=== PATIENT | female | born 1980 ===

== ENCOUNTER 2017-09-13 12:36 | Emergency (ER) | payer MEDICAID, OTHER ==
--- NOTE | 2017-09-13 12:53 | ER Report ---
History and Physical Time Seen By MD: 12:38 Hx. of Stated Complaint: COUGH, SORE THROAT SINCE FRIDAY. HPI/ROS CHIEF COMPLAINT: Cough and sore throat HISTORY OF PRESENT ILLNESS: Patient is a 36-year-old female who presents the ED with complaint of cough and sore throat for the past 3 days. She states that her father has been ill and was diagnosed with pneumonia yesterday. She was concerned that she might be developing pneumonia and that she is 18 weeks . Patient denies any productive cough. She has not noted any fever or shortness of breath. She did start to have some hoarseness yesterday. She has not been taking any medications for her symptoms. REVIEW OF SYSTEMS: Constitutional: No fever, no chills. Eyes: No discharge. ENT: See history of present illness. Cardiovascular: No chest pain, no palpitations. Respiratory: See history of present illness. Musculoskeletal: No back pain. Skin: No rashes. Neurological: No headache. Allergies: Coded Allergies: No Known Drug Allergies (Unverified , 09/13/17) Reviewed Nurses Notes: Yes Old Medical Records Reviewed: Yes Constitutional Vital Sign - Last 24 Hours 09/13/17 12:41 Temp 97.9 Pulse 78 Resp 18 B/P (MAP) 136/84 Pulse Ox 98 Physical Exam General Appearance: The patient is alert, has no immediate need for airway protection and no signs of toxicity. Patient appears to be no acute distress. Eyes: Pupils equal and round no pallor or injection. ENT, Mouth: Mucous membranes are moist. Mild tonsillar erythema but no exudate appreciated. No anterior cervical lymphadenopathy appreciated. Respiratory: There are no retractions, lungs are clear to auscultation. Cardiovascular: Regular rate and rhythm. Skin: Warm and dry, no rashes. Musculoskeletal: Neck is supple non tender. Extremities are nontender, nonswollen and have full range of motion. DIFFERENTIAL DIAGNOSIS: After history and physical exam differential diagnosis was considered for cough and sore throat including pneumonia, influenza, upper respiratory infection, pulmonary embolism. Medical Decision Making Data Points Laboratory Hematology Test 09/13/17 12:42 Group A Streptococcus Screen Negative (NEGATIVE) Chemistry Test 09/13/17 12:42 Group A Streptococcus Screen Negative (NEGATIVE) ED Course/Re-evaluation ED Course Will obtain strep swab. 09/13/2017 1:11:17 pm - discussed the negative strep swab with the patient. Discussed with patient that given her hoarseness and lungs are clear likely this is a viral upper respiratory infection. She is limited with what she can take for this due to her . Advised that she may take some Tylenol for some pain relief if she wants. Decision to Disposition Date: Sep 13, 2017 Decision to Disposition Time: 13:11 Depart Departure Latest Vital Signs Vital Signs Date Time Temp Pulse Resp B/P (MAP) Pulse Ox O2 Delivery O2 Flow Rate FiO2 09/13/17 12:41 97.9 78 18 136/84 98 Impression: Primary Impression: Upper respiratory infection Condition: Improved Disposition: HOME OR SELF-CARE Patient Instructions: Upper Respiratory Infection (ED) Additional Instructions: Stay well-hydrated. Follow-up with primary care provider in 2-3 days. If having any worsening concerning symptoms may return to the emergency department. Problem Qualifiers Primary Impression: Upper respiratory infection URI type: unspecified URI Qualified Codes: J06.9 - Acute upper respiratory infection, unspecified FAHAD GALAVIZ PA-C Sep 13, 2017 12:53
[2017-09-13 13:24] VITALS: BP 99/68
== END 2017-09-13 13:24 | disposition home or self-care (01) ==
LOC: ER 12:40
DX: O26.892 Other specified pregnancy related conditions, second trimester (principal); Z3A.18 18 weeks gestation of pregnancy
CPT/HCPCS: 87081; 87880; 99282

== ENCOUNTER 2018-01-29 05:37 | Inpatient (IN) | payer OTHER ==
[~2018-01-29] VITALS: Ht 170.2 cm; Wt 80.7 kg
[2018-01-29] VITALS (21 sets, daily range): BP systolic 78–120; BP diastolic 51–85; Ht 170.2 cm; Wt 80.7 kg
[2018-01-29] MEDS ORDERED: FAMOTIDINE(*) 20MG/50ML PREMIX 50 ML IVPB PRN (05:47)
[2018-01-29] MEDS ORDERED: TERBUTALINE SULF 1 MG/ML VIAL SUBQ PRN (05:50)
[2018-01-29] MEDS ORDERED: cefOXitin/DEX(*) 2GM/50ML PREM 50 ML IVPB PRN (05:50)
[2018-01-29] MEDS ORDERED: METOCLOPRAMIDE 10 MG/2 ML SDV IVP PRN (05:50)
[2018-01-29] MEDS: LR(*) 1000 ML BAG 1,000 ML IV PRN ×2 (06:28→11:50)
[2018-01-29 06:32] LABS: PLATELET COUNT, AUTOMATED 198 K/uL (150-450)
[2018-01-29] MEDS ORDERED: PHENAZOPYRIDINE 200 MG TAB PO ONE (06:55)
--- NOTE | 2018-01-29 07:56 | History & Physical ---
History of Present Illness Age of Patient: 37 : 2 Para or TPAL: 1 EDC per LMP: Feb 03, 2018 Estimated Gestational Age: 39.2 Chief Complaint Delivery History of Present Illness Presents for ECV for breech. Has been breech for several weeks and no indication of having changed. Have reviewed delivery plan including ECV and induction if successful or if fails. She desires sterilization as well. has been complicated initially by hypoechoic border of left kidney of fetus that later was felt to be prominent adrenal glands. Her medical history includes a prior back fusion in 2009 and she has had an anesthesia consult. Otherwise healthy. Past Medical, Surgical, Family and Obstetric Histories reviewed. Please see [facility] chart. History Patient's Blood Type: A Positive Rubella Status: Immune Obstetrical History: prior vaginal delivery x 1 Allergies: Coded Allergies: No Known Drug Allergies (Unverified , 09/13/17) Exam General Exam Vital Signs Vital Signs Date Time Temp Pulse Resp B/P (MAP) Pulse Ox O2 Delivery O2 Flow Rate FiO2 01/29/18 06:30 98.1 80 18 117/64 (81) 98 Room Air General Apperance: Alert/Awake/No Acute Distress Neuro: No Gross deficits Cardiovascular: Regular Rate and Rhythm Respiratory: No Respiratory Distress Abdomen: Soft, Non-Tender, Non-Distended, Gravid - Non-Tender Integumentary: Skin Intact without Lesions or Rash Psychological: Alert & Oriented X3, Appropriate Mood & Affect Fetus Heart Tone Variabilty: Moderate FHT Accelerations: 15X15 FHT Category: I Medical Decision Making Data Points Result Diagram: 01/29/18 0610 VTE Prophylasis: Adult Deep Vein Thrombosis/Pulmonary: No Pharmacological Contraindicati: Pt at Low Risk for VTE Mechanical Contraindications: Pt at Low Risk for VTE Assessment and Plan Problems: (1) Breech presentation Assessment & Plan: ECV as planned. Reviewed r/b/a to this including elective . (2) Admission for sterilization Assessment & Plan: PPTL as planned. (3) 39 weeks gestation of Problem Qualifiers (1) Breech presentation: Fetus number: single or unspecified fetus Qualified Codes: O32.1XX0 - Maternal care for breech presentation, not applicable or unspecified LALITHA SYKES MD Jan 29, 2018 07:55
--- NOTE | 2018-01-29 08:26 | OB/GYN Progress Note ---
OB Subjective Progress Notes Subjective position evaluated by u/s and complete breech with anterior spine and head in maternal RUQ. Anterior/fundal placenta. ECV failed after 3 aggressive attempts. FHTs were stable throughout attempt. Position of fetus under u/s guidance did not change. OB Objective Physical Exam Vital Signs Date Time Temp Pulse Resp B/P (MAP) Pulse Ox O2 Delivery O2 Flow Rate FiO2 01/29/18 06:30 98.1 80 18 117/64 (81) 98 Room Air General Appearance: Alert/Awake/No Acute Distress Neurological: No Gross deficits Respiratory: No Respiratory Distress Integumentary: Skin Intact without Lesions or Rash Psychological: Alert & Oriented X3, Appropriate Mood & Affect Result Diagram: 01/29/18 0610 Assessment and Plan Problems: (1) Breech presentation Assessment & Plan: Counter clockwise rotation of fetus attempted x 3 but failed. No complications. Reviewed again and consented for /PPTL. (2) Admission for sterilization (3) 39 weeks gestation of Problem Qualifiers (1) Breech presentation: Fetus number: single or unspecified fetus Qualified Codes: O32.1XX0 - Maternal care for breech presentation, not applicable or unspecified LALITHA SYKES MD Jan 29, 2018 08:26
--- NOTE | 2018-01-29 08:45 | Anesthesia OB Pre-Anes Eval ---
History of Present Illness Anesthesia Start Date: Jan 29, 2018 OB Anesthesia Diagnosis: primary c/section Current Complication: other (Breech) EDC: Feb 01, 2018 : 2 Para: 1 Vital Signs: Vital Signs Date Time Temp Pulse Resp B/P (MAP) Pulse Ox O2 Delivery O2 Flow Rate FiO2 01/29/18 06:30 98.1 80 18 117/64 (81) 98 Room Air Pain Ratin Heart Tones: WNL Result Diagram: 01/29/18 0610 Height (Inches): 67.00 Weight (Pounds): 178 BMI Calculated: 27.88 Past Medical History Medical History: no pertinent history Surgical History: back surgery (Fusion of L4-5-S1) Previous Anesthesia: general Attended Childbirth Classes?: No Hx Anesthesia Reactions: No Hx Family Anesthesia Reaction: No Allergies: Coded Allergies: No Known Drug Allergies (Unverified , 09/13/17) Anesthesia OB ROS Neurological: No migraines/headaches, No seizures, No neuropathy Pulmonary: No asthma, No smoker (pks/day/yrs) Airway Class: ll Cardiovascular ROS: No edema, No arrhythmia GI ROS: NPO, clear liquids ROS: No Herpes, No STD(s), No Liver Disease, No Renal Disease Endocrine ROS: No diabetes, No gestational diabetes, No thyroid disorder Musculoskeletal ROS: other (Fusion) ASA Classification: 2 Assessment and Plan Anesthesia Plan: GILBERTO WILL CRNA Jan 29, 2018 08:45
--- NOTE | 2018-01-29 08:58 | RADIOLOGY IMAGING REPORT ---
FACILITY: [facility] PATIENT NAME: Lu Marshall : 1980 MR: [id number] V: [id number] EXAM DATE: ORDERING PHYSICIAN: LALITHA SYKES TECHNOLOGIST: [place] [facility] [place] : 1980 Visit/Account:[id number] Date of Sevice: 01/29/2018 Exam type: OB LIMITED History: Attempted external Version Comparison: None. Findings: Multiple sonographic images were submitted during attempted external version. There is a single fetu s in breech presentation prior to attempted external version. The heart rate preversion is 134 bpm, mid version ranged between 126 and 150 bpm and post attempted version 153 bpm. The posit ion prior to attempted external version was in breech presentation with the head towards matern al right. position post attempted external version remained in breech presentation with the fe mita head towards the maternal right. Placenta is anterior IMPRESSION: 1. As above Report Dictated By: Haydee Beasley MD at 01/29/2018 8:44 AM Report E-Signed By: Haydee Beasley MD at 01/29/2018 8:53 AM WSN:[id number]
[2018-01-29] MEDS ORDERED: KETOROLAC 30 MG/ML VIAL ONE (11:31)
[2018-01-29] MEDS ORDERED: ONDANSETRON 4 MG/2 ML VIAL ONE (11:31)
[2018-01-29] MEDS ORDERED: OXYTOCIN 10 UNIT/ML SDV ONE (11:31)
[2018-01-29] MEDS ORDERED: fentaNYL CITR 100 MCG/2 ML AMP ONE (11:31)
[2018-01-29] MEDS ORDERED: MORPHINE PF 5 MG/10 ML AMP ONE (11:31)
[2018-01-29] MEDS ORDERED: WATER STERILE FOR IRRIG 1000ML IR ONE (12:48)
[2018-01-29] MEDS ORDERED: LIDOCAINE/SOD BICARB 8.4% SYR ONE (13:10)
[2018-01-29] MEDS ORDERED: OXYTOCIN 30 UNIT/D5LR 500 ML 500 ML IV PRN (14:30)
[2018-01-29] MEDS ORDERED: ZOLPIDEM TARTRATE 10 MG TAB PO PRN (14:30)
[2018-01-29] MEDS ORDERED: ACETAMINOPHEN 325 MG TAB PO PRN (14:30)
[2018-01-29] MEDS ORDERED: SIMETHICONE 80 MG CHEW CHEW PRN (14:30)
[2018-01-29] MEDS ORDERED: LANOLIN OINT 7 GM TUBE TP PRN (14:30)
[2018-01-29] MEDS ORDERED: PROMETHAZINE 25 MG/ML 1 ML AMP IVP PRN (14:30)
[2018-01-29] MEDS ORDERED: DLR(*) 1000 ML BAG 1,000 ML IV PRN (14:30)
[2018-01-29] MEDS ORDERED: ONDANSETRON 4 MG/2 ML VIAL IV PRN (14:30)
--- NOTE | 2018-01-29 14:51 | Post Operative Note ---
Operative Note - STOCK ORDER LISTER Operative Day Date: Jan 29, 2018 Time: 14:44 Physicians Surgeon: Sanaz Internet Architect: Giulia Galaviz Anesthesia: spinal Diagnosis Pre-Op Diagnosis: TIUP Sterilizatioin Breech, failed version Post-Op Diagnosis: same Procedure Findings: male, 3862 gm, APGARS 8/9 Procedure(s): Primary LTCS Specimen Removed:(Maybe N/A): [id number] Complications: none Fluids Fluids: 1000 ml Estimated Blood Loss: 500 ml Dictated Date OP Note Dictated: Jan 29, 2018 Time OP Note Dictated: 14:45 Copies to: LALITHA SYKES MD, TRAVIS MD Jan 29, 2018 14:51
--- NOTE | 2018-01-29 16:05 | OPERATIVE REPORT 1 ---
EVENT DATE: January 29, 2018 SURGEON: Lester Yo MD ANESTHESIA: Spinal. PEANUT PICKER: Giulia Galaviz PA-C PREOPERATIVE DIAGNOSES 1. A 39-week intrauterine . 2. Complete breech presentation, back anterior (failed external cephalic version). 3. Desired sterilization. POSTOPERATIVE DIAGNOSES 1. A 39-week intrauterine . 2. Complete breech presentation, back anterior (failed external cephalic version). 3. Desired sterilization. PROCEDURES PERFORMED 1. Primary low transverse section via Pfannenstiel skin incision. 2. Tubal ligation. ESTIMATED BLOOD LOSS 500 mL FLUIDS Crystalloid 1000 mL IV. URINE OUTPUT 75 mL FINDINGS Male infant in the complete breech presentation, left sacrum anterior. Apgars were 8 and 9. Weight 3862 g. PROCEDURE IN DETAIL The patient was admitted for an external cephalic version attempt this morning. This failed after three solid attempts to get the infant to rotate counterclockwise with the head in the maternal right upper quadrant. She was, therefore, consented for abdominal delivery. She was brought to the operating room with a working IV, and spinal anesthetic was administered. She was then placed in the dorsal supine position with a leftward tilt and prepped and draped in the usual sterile fashion. Using a knife, a Pfannenstiel skin incision was made and carried through to the underlying rectus fascia. This was nicked in the midline and extended laterally. The rectus fascia was then dissected off of rectus muscles using sharp dissection and in the midline. Peritoneum was entered bluntly. The incisions were extended superiorly and inferiorly taking care to avoid injury to the underlying bladder. Bladder blade was inserted. This exposed the lower uterine segment of the uterus. The vesicouterine peritoneum was tented, entered sharply, and extended laterally. A bladder flap was created digitally. This exposed the lower uterine segment of the uterus, receiving a low transverse incision with the scalpel and carried through to the intra-amniotic space. There was clear fluid upon amniotomy. The incision was extended laterally using blunt traction. A hand was inserted, and the 's feet were encountered in the complete breech presentation, left sacrum anterior. The feet were delivered, and we quickly delivered up to the sacrum. Maintaining the sacrum anterior position, the baby was delivered to the level of the shoulders. Both arms were swept across the chest to deliver the arms. The baby was elevated while fundal pressure was applied to keep the 's chin approximated against the chest and the head flexed. The infant's head delivered atraumatically. Mouth and nose were bulb suctioned. The cord was clamped and cut, and the infant was passed to the awaiting resuscitation team. Cord sample was obtained. The placenta was delivered manually. Uterus was exteriorized and cleared of clots and debris. Andrews clamps were placed for hemostasis while the uterine repair was performed with a #1 Monocryl in a running locking stitch. A second suture of the same type was used to imbricate the first layer, completing a two- layer closure. Attention was then turned to tubal ligation in which the right fallopian tube was grasped in the isthmic portion, elevated, and a knuckle of tube was created with a plain gut tie. This was doubly ligated, and a 1.5 cm segment of tube was excised. The same procedure was followed on the contralateral side with an excellent result. No complications. The uterus was then returned to the abdomen, and bilateral pelvic gutters were irrigated and swept clear of clots and debris. The tubal pedicles were, again, inspected in situ and found to be hemostatic. Therefore, the parietal peritoneum was repaired using a 3-0 Vicryl in a running, nonlocking stitch. The same suture was used to reapproximate the rectus muscles. Rectus fascia was repaired using an 0 Vicryl in a running, nonlocking stitch. Subcuticular space was irrigated, swept clear of clots and debris, and then closed with a 3-0 Vicryl Plus. Skin was repaired with a 4-0 Monocryl simple subdermal and covered with Dermabond skin adhesive. She tolerated the procedure well. Sponge, lap, needle , and instrument counts were all correct times three. She was taken to Recovery in stable condition. TA
[2018-01-29] MEDS ORDERED: NALBUPHINE HCL 10 MG/ML AMP IVP PRN (17:05)
[2018-01-29] MEDS ORDERED: diphenhydrAMINE 25 MG CAP PO PRN (17:05)
[2018-01-29] MEDS: KETOROLAC 30 MG/ML VIAL IVP SCH (18:50)
[2018-01-29] MEDS: FAMOTIDINE 20 MG TAB PO SCH (20:50)
[2018-01-29] MEDS: DOCUSATE CALCIUM 240 MG CAP PO SCH (20:50)
[2018-01-30 01:00] VITALS: BP 109/59
[2018-01-30] MEDS: KETOROLAC 30 MG/ML VIAL IVP SCH (01:25)
[2018-01-30 03:47] VITALS: BP 93/73
[2018-01-30 07:02] LABS: PLATELET COUNT, AUTOMATED 167 K/uL (150-450)
--- NOTE | 2018-01-30 08:16 | OB/GYN Progress Note ---
OB Subjective Progress Notes Subjective Pain controlled, Tolerating diet and activity. Baby . Normal lochia. GI: NEG Nausea, NEG Vomiting, NEG Flatus Pain: Mild OB Objective Physical Exam Vital Signs Date Time Temp Pulse Resp B/P (MAP) Pulse Ox O2 Delivery O2 Flow Rate FiO2 01/30/18 03:47 98.1 70 14 93/73 (80) 100 Room Air General Appearance: Alert/Awake/No Acute Distress Neurological: No Gross deficits Cardiovascular: Regular Rate and Rhythm Respiratory: No Respiratory Distress, Clear to Auscultation Abdomen: Soft, Non-Tender, Non-Distended, Bowel Sounds Present, Fundus Firm Extremities: No Edema Integumentary: Skin Intact without Lesions or Rash Psychological: Alert & Oriented X3, Appropriate Mood & Affect Result Diagram: 01/30/18 0621 Assessment and Plan 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 Baby . Normal lochia. Problem Qualifiers (1) Breech presentation: Fetus number: single or unspecified fetus Qualified Codes: O32.1XX0 - Maternal care for breech presentation, not applicable or unspecified BAL PLASCENCIA MD Jan 30, 2018 08:16
[2018-01-30] MEDS: FAMOTIDINE 20 MG TAB PO SCH ×2 (08:41→21:00)
[2018-01-30] MEDS: DOCUSATE CALCIUM 240 MG CAP PO SCH ×2 (08:41→21:00)
[2018-01-30 08:45] VITALS: BP 105/76
--- NOTE | 2018-01-30 11:03 | Anesthesia Post Eval Note ---
Anesthesia Post Eval Note Vital Signs Date Time Temp Pulse Resp B/P (MAP) Pulse Ox O2 Delivery O2 Flow Rate FiO2 01/30/18 08:45 97.8 77 18 105/76 (86) 97 Room Air Pt able to participate in Eval: Yes Cardiovascular Status: Satisfactory Respiratory Status: Satisfactory Pain Managment: Satisfactory PO Nausea/Vomiting: Satisfactory Temperature Management: Satisfactory Mental Status: Satisfactory, Alert, Oriented X3 Post-Op Hydration Status: Satisfactory, Tolerating PO Well, Voiding w/o Difficulty Anesthesia Type: SAB Anesthesia Tolerance: Tolerated procedure well without apparent anesthetic complications. LP site clear, no redness or edema. Denies headache or any residual paresthesia. Vital Signs Stable, Patient comfortable and condition stable. GILBERTO KNOX CRNA Jan 30, 2018 11:03
[2018-01-30] MEDS: IBUPROFEN 800 MG TAB PO SCH ×2 (11:44→20:00)
[2018-01-30 11:47] VITALS: BP 110/81
[2018-01-30] MEDS ORDERED: PHENAZOPYRIDINE 200 MG TAB PO SCH (16:20)
[2018-01-30] MEDS: CEPHALEXIN MONO 500 MG CAP PO SCH ×2 (16:51→21:00)
[2018-01-30 17:10] VITALS: BP 105/77
[2018-01-30] MEDS ORDERED: PHENAZOPYRIDINE 200 MG TAB PO PRN (17:25)
[2018-01-30 21:10] VITALS: BP 112/77
[2018-01-30] MEDS ORDERED: BISACODYL 10 MG SUPP PR ONE ×2 (22:00→22:25)
[2018-01-31 00:05] VITALS: BP 98/73
[2018-01-31] MEDS ORDERED: IBUP800T37 PO (02:34)
[2018-01-31] MEDS ORDERED: OXYC-373 PO (02:35)
--- NOTE | 2018-01-31 02:37 | OB/GYN Discharge Summary ---
Discharge Summary Reason for Hosp/Final Diag: (1) Breech presentation (2) Admission for sterilization (3) 39 weeks gestation of (4) care following delivery Hospital Course & Plan: Failed version, PLTCS for breech, on day 2, Pain controlled, Tolerating diet and activity. Baby . Normal lochia. Lates Vital Signs Vital Signs Date Time Temp Pulse Resp B/P (MAP) Pulse Ox O2 Delivery O2 Flow Rate FiO2 01/31/18 00:05 98.1 80 13 98/73 (81) Room Air 01/30/18 21:10 95 Weight (Pounds): 178 Result Diagram: 01/30/18 0621 Condition: Improved Discharge: Home, Self Long-Term Meds Active Scripts Oxycodone Hcl/Acetaminophen (OXYCODONE-ACETAMINOPHEN 5-325) 1 Each Tablet, 1 EACH PO Q4H Y for PAIN, #30 TAB 0 Refills TAKE 1 TABLET NEEDED FOR PAIN - NO CLOSER THAN EVERY 4 HOURS. Prov:BAL PLASCENCIA MD 01/31/18 Ibuprofen (IBUPROFEN) 800 Mg Tablet, 1 TAB PO Q8H, #30 TAB 0 Refills Take with food every 8 hours. Prov:BAL PLASCENCIA MD 01/31/18 [facility] [phone] Follow up in: 6 wks PP or PO, 2 wks PO Discharge Diet: As Tolerates Discharge Activity: Pelvic Rest Copies to: BAL PLASCENCIA MD Problem Qualifiers (1) Breech presentation: Fetus number: single or unspecified fetus Qualified Codes: O32.1XX0 - Maternal care for breech presentation, not applicable or unspecified BAL PLASCENCIA MD Jan 31, 2018 02:37
[2018-01-31 04:15] VITALS: BP 108/63
[2018-01-31] MEDS: IBUPROFEN 800 MG TAB PO SCH (04:17)
--- NOTE | 2018-01-31 07:07 | OB/GYN Progress Note ---
OB Subjective Progress Notes Subjective Pain controlled, Tolerating diet and activity. Baby . Normal lochia. GI: POS Flatus, NEG Nausea, NEG Vomiting : Voiding Well Pain: Mild OB Objective Physical Exam Vital Signs Date Time Temp Pulse Resp B/P (MAP) Pulse Ox O2 Delivery O2 Flow Rate FiO2 01/31/18 00:05 98.1 80 13 98/73 (81) Room Air 01/30/18 21:10 95 General Appearance: Alert/Awake/No Acute Distress Neurological: No Gross deficits Cardiovascular: Regular Rate and Rhythm Respiratory: No Respiratory Distress, Clear to Auscultation Abdomen: Soft, Non-Tender, Non-Distended, Bowel Sounds Present, Fundus Firm Extremities: No Edema Integumentary: Skin Intact without Lesions or Rash Psychological: Alert & Oriented X3, Appropriate Mood & Affect Result Diagram: 01/30/18 0621 Assessment and Plan 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 Baby . Normal lochia. Problem Qualifiers (1) Breech presentation: Fetus number: single or unspecified fetus Qualified Codes: O32.1XX0 - Maternal care for breech presentation, not applicable or unspecified BAL PLASCENCIA MD Jan 31, 2018 07:07
[2018-01-31 08:30] VITALS: BP 103/81
[2018-01-31] MEDS ORDERED: MEASLES,MUMP,RUBELLA VAC 0.5ML SUBQ ONE (09:00)
[2018-01-31] MEDS ORDERED: DIPHTH/TETANUS/ACEL. PERTUSSIS IM ONLY ONE (09:00)
[2018-01-31] MEDS: FAMOTIDINE 20 MG TAB PO SCH (09:06)
[2018-01-31] MEDS: DOCUSATE CALCIUM 240 MG CAP PO SCH (09:06)
[2018-01-31] MEDS: CEPHALEXIN MONO 500 MG CAP PO SCH (09:07)
== END 2018-01-31 10:00 | disposition home or self-care (01) | DRG 766 ==
LOC: OB 05:37
PROVIDERS: ADMIT Obstetrics & Gynecology; ATTEND Obstetrics & Gynecology
PROC: 0UB70ZZ Excision of Bilateral Fallopian Tubes, Open Approach (ICD-10-PCS; 2018-01-29)
PROC: 10S0XZZ Reposition Products of Conception, External Approach (ICD-10-PCS; 2018-01-29)
PROC: 10D00Z1 Extraction of Products of Conception, Low, Open Approach (ICD-10-PCS; principal; 2018-01-29 13:00)
DX: O32.1XX0 Maternal care for breech presentation, not applicable or unspecified (principal); Z30.2 Encounter for sterilization; Z98.1 Arthrodesis status; Z3A.39 39 weeks gestation of pregnancy; Z37.0 Single live birth
CPT/HCPCS: 36415; 59412; 76815; 81001; 85025; 86850; 86900; 86901; 88302; J0694; J1885; J2270; J2405; J2590; J3010; J3105; J3490; J7120